=== PATIENT | female | born 1965 | race African-American/Black ===

== ENCOUNTER → 2017-06-11 | Outpatient (CLI) | payer BC ==
[2017-06-11 16:01] LABS: HEMATOCRIT 30.8 % (36.0-47.0); HEMOGLOBIN 10.7 g/dL (12.0-15.5); HGB HCT DIFFERENCE 1.3; MEAN CORPUSCULAR HEMOGLOBIN 27.6 pg (27.0-33.4); MEAN CORPUSCULAR HGB CONC 34.6 g/dL (32.0-36.0); MEAN CORPUSCULAR VOLUME 80 fl (80-97); RED BLOOD COUNT 3.86 10^6/uL (3.72-5.28); WHITE BLOOD COUNT 7.1 10^3/uL (4.0-10.5)
[2017-06-11 16:02] LABS: APPEARANCE,URINE CLEAR; BILIRUBIN,URINE NEGATIVE (NEGATIVE); GLUCOSE, URINE >=500 mg/dL (NEGATIVE); KETONES,URINE NEGATIVE (NEGATIVE); LEUKOCYTE ESTERASE,URINE NEGATIVE (NEGATIVE); NITRITE,URINE NEGATIVE (NEGATIVE); PROTEIN,URINE NEGATIVE (NEGATIVE); UROBILINOGEN,URINE NEGATIVE mg/dL (<2.0)
[2017-06-11 16:22] LABS: ANION GAP 14 (5-19); BLOOD UREA NITROGEN 35 mg/dL (7-20); CARBON DIOXIDE 25 mmol/L (22-30); CHLORIDE 99 mmol/L (98-107); GLUCOSE 208 mg/dL (75-110); POTASSIUM 4.8 mmol/L (3.6-5.0)
[2017-06-11 16:28] LABS: URINE CREATININE 38.8 mg/dL (15-278); URINE PROTEIN 14.2 mg/dL (<12)
== END ==
LOC: OD 15:09
PROVIDERS: ATTEND Physician Assistant Medical
DX: N18.3 Chronic kidney disease, stage 3 (moderate) (principal); R80.9 Proteinuria, unspecified; E11.9 Type 2 diabetes mellitus without complications
CPT/HCPCS: 36415; 80048; 81001; 82570; 84156; 85027

== ENCOUNTER 2018-03-08 09:08 | Day surgery (SDC) | payer BC ==
[~2018-03-08 09:08] MED LIST: PROPOFOL INJ 200 MG/20 ML VIAL IV ONE
[2018-03-08 10:34] VITALS: BP 137/78
--- NOTE | 2018-03-08 13:30 | Operative Report ---
Operative Report DATE OF SURGERY: 03/08/18 Operative Report: The risks, benefits and alternatives of the procedure including risks of bleeding, perforation requiring surgery are explained to the patient in detail and informed consent is obtained. The patient is brought back to the endoscopy suite and placed in the left, lateral decubital position. Timeout was called. Propofol medications administered. A rectal examination is done which did not reveal any masses, tears or fissures. An Olympus videoscope was inserted into the patient's rectum. The scope was then carefully advanced all the way to the cecum. The cecum was identified by the usual anatomical landmarks including the ileocecal valve as well as the appendiceal office. Photodocumentation is obtained. The scope was then sequentially pulled back via the various segments of the colon including the ascending colon, hepatic flexure, transverse colon, splenic flexure, descending colon and finally into the rectosigmoid portions of the colon. Retroflexion maneuver is performed. PREOPERATIVE DIAGNOSIS: Left lower quadrant abdominal pain. Colorectal cancer screening POSTOPERATIVE DIAGNOSIS: Normal screening colonoscopy. Question IBS. Possible other etiology for the patient's abdominal pain OPERATION: Diagnostic colonoscopy SURGEON: JANIE VELASQUEZ ANESTHESIA: LMAC TISSUE REMOVED OR ALTERED: None. COMPLICATIONS: None. ESTIMATED BLOOD LOSS: None. INTRAOPERATIVE FINDINGS: As noted above. PROCEDURE: Patient tolerated the procedure well. No immediate postprocedure complications are noted. Patient discharged in good condition. Discharge date 03/08/2018. Discharge diet: Regular. Discharge activity: Regular. 2-3 week follow-up to discuss findings. Patient is instructed call the office or proceed to the emergency room should there be any further problems or questions. 10 year surveillance colonoscopy.
== END 2018-03-08 10:25 | disposition home or self-care (01) ==
LOC: END 09:08
PROVIDERS: ATTEND Internal Medicine Gastroenterology
DX: R10.84 Generalized abdominal pain (principal); R10.32 Left lower quadrant pain; I10 Essential (primary) hypertension; E07.9 Disorder of thyroid, unspecified; E11.9 Type 2 diabetes mellitus without complications; D64.9 Anemia, unspecified; Z88.8 Allergy status to other drugs, medicaments and biological substances
CPT/HCPCS: 45378; 82962; J2704; 811

== ENCOUNTER 2018-08-11 11:25 | Day surgery (SDC) | payer BC ==
[~2018-08-11 11:25] MED LIST changes: +KETOROLAC TROMETHAMINE 0.45% 4 DROP/0.4 ML DROPERETTE OD PRN; -PROPOFOL INJ 200 MG/20 ML VIAL IV ONE
[2018-08-11] MEDS ORDERED: LIDOCAINE 1% INJ-PF (10 MG/ML) 30 ML SDV ONE (11:35)
[2018-08-11] MEDS ORDERED: CHONDR SU A NA/HYALUR INTRAOC KIT (SURGICARE) ONE (11:35)
[2018-08-11] MEDS ORDERED: EPINEPHRINE INJ/PF 1 MG/1 ML AMPULE ONE (11:35)
[2018-08-11] MEDS ORDERED: TRYPAN BLUE 0.06 % OPH SOLN 0.5 ML DISP.SYRIN ONE (11:36)
[2018-08-11] MEDS: CYCLOPENTOLATE 0.2%/PHENYLEPHRINE 1% OPH SOLN 2 ML OD PRN ×3 (12:34→12:54)
[2018-08-11] MEDS: TROPICAMIDE 1% OPH SOLN 3 ML OD PRN ×3 (12:34→12:54)
[2018-08-11] MEDS: BESIFLOXACIN HCL 0.6% OPH SUSP 5 ML BOTTLE OD PRN ×4 (12:34→13:32)
[2018-08-11] MEDS: TETRACAINE HCL 0.5% OPH SOLN 0.6 ML DROPERETTE OD PRN ×3 (12:35→13:02)
[2018-08-11] MEDS ORDERED: FENTANYL CITRATE INJ/PF 100 MCG/2 ML AMPUL ONE (12:43)
[2018-08-11] MEDS ORDERED: MIDAZOLAM 2 MG/2 ML INJ ONE (12:43)
[2018-08-11] MEDS: TOBRAMYCIN SULFATE/DEXAMETH OPH OINTMENT 3.5 GM ONE ×2 (13:32)
== END 2018-08-11 14:15 | disposition home or self-care (01) ==
LOC: SC 11:25
PROVIDERS: ATTEND Ophthalmology
DX: H25.11 Age-related nuclear cataract, right eye (principal); E11.9 Type 2 diabetes mellitus without complications; I10 Essential (primary) hypertension; E03.9 Hypothyroidism, unspecified; Z79.899 Other long term (current) drug therapy; Z79.84 Long term (current) use of oral hypoglycemic drugs
CPT/HCPCS: 66984; 82962; V2630; J2250; J3490 ×4; J0171; J3010; 142